=== PATIENT | female | born 1960 | race Caucasian/White ===

== ENCOUNTER → 2019-05-27 15:52 | Outpatient (CLI) | payer OTHER, SELFPAY ==
[2019-05-29 19:25] LABS: ANA Screen, IFA Negative (Negative)
== END ==
PROVIDERS: Visit Provider Dermatology
DX: L56.4 Polymorphous light eruption (principal); L56.8 Other specified acute skin changes due to ultraviolet radiation; R21 Rash and other nonspecific skin eruption
CPT/HCPCS: 36415; 86038